=== PATIENT | male | born 1955 | race Caucasian/White ===

== ENCOUNTER 2017-06-06 19:12 | Emergency (ER) | payer OTHER ==
[~2017-06-06] VITALS: Ht 160 cm; Wt 149.7 kg
[~2017-06-06 19:12] MED LIST: BLOOD THINNER; CEPHALEXIN500 M1 PO; DARVOCET N 1001 TAB PO; KEFLEX500 MG PO; PRAVACHOL20 MG PO
[2017-06-06 19:18] VITALS: BP 152/67
[2017-06-06] MEDS ORDERED: NORCO 5-325 TA1 EACH PO (20:21)
== END 2017-06-06 20:31 | disposition home or self-care (01) ==
LOC: ED 19:12
DX: S93.401A Sprain of unspecified ligament of right ankle, initial encounter (principal); F17.200 Nicotine dependence, unspecified, uncomplicated; Z79.899 Other long term (current) drug therapy; W23.0XXA Caught, crushed, jammed, or pinched between moving objects, initial encounter; Y93.89 Activity, other specified; Y92.89 Other specified places as the place of occurrence of the external cause; Y99.0 Civilian activity done for income or pay

== ENCOUNTER 2018-03-11 10:14 | Inpatient (IN) | payer OTHER ==
[~2018-03-11] VITALS: Ht 167.6 cm; Wt 147.1 kg
--- NOTE | ~2018-03-11 | EKG ---
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
[~2018-03-11 10:14] MED LIST changes: +NORCO 5-325 TA1 EACH PO
[2018-03-11 10:15] VITALS: BP 134/47
[2018-03-11 10:41] LABS: BASO % 0.5 % (0.0-1.0); EOS % 0.4 % (1.0-4.0); LYMPH # 2.1 10*3/uL (1.3-4.4); LYMPH % 26.9 % (27.0-41.0); MEAN CELL VOLUME 89.6 fl (80.0-94.0); MEAN CORPUSCULAR HGB CONC 31.3 g/dl (33.0-37.0); MEAN PLATELET VOLUME 9.1 fl (9.6-12.3); MONO # 0.7 10*3/uL (0.1-1.0); MONO % 8.4 % (3.0-9.0); NEUT # 4.9 10*3/uL (2.3-7.9); NEUT % 63.3 % (47.0-73.0); NUCLEATED RED BLOOD CELL 0.1 10*3/uL (0.0-0.0); NUCLEATED RED BLOOD CELL 0.8 % (0.0-0.0); PLATELET COUNT AUTOMATED 189 10*3/uL (130-400); RED BLOOD COUNT 5.36 10*6/uL (4.50-5.90); RED CELL DISTRI WIDTH 15.5 % (0-14.5); WHITE BLOOD COUNT 7.8 10*3/uL (4.8-10.8)
[2018-03-11 10:52] LABS: ACT PARTIAL THROMBO TIME 23.9 SECONDS (20.8-31.5); INTERNATIONAL NORM RATIO 1.1 (2.0-3.5)
[2018-03-11 11:00] LABS: ALBUMIN 3.4 gm/dl (3.1-4.5); ALKALINE PHOSPHATASE 72 U/L (45-117); BUN 19 mg/dl (7-24); CHLORIDE 100 mmol/L (98-107); CREATININE 1.01 mg/dL (0.70-1.30); POTASSIUM 3.6 mmol/L (3.5-5.1); SGOT/AST 36 IU/L (3-35); SGPT/ALT 58 U/L (12-78); SODIUM 141 mmol/L (136-145)
[2018-03-11 11:02] LABS: TROPONIN I < 0.015 ng/ml (<0.045)
[2018-03-11 12:09] VITALS: BP 124/54
[2018-03-11] MEDS ORDERED: HYDROCHLOROTHIA50 M1 PO (12:12)
[2018-03-11] MEDS ORDERED: PRAVACHOL80 M1 PO (12:13)
[2018-03-11] MEDS ORDERED: CLOPIDOGREL75 MG PO (12:13)
[2018-03-11 12:15] VITALS: BP 113/77
[2018-03-11 13:55] LABS: BILIRUBIN NEGATIVE (NEGATIVE); BLOOD NEGATIVE (NEGATIVE); CLARITY CLEAR (CLEAR); COLOR YELLOW (YELLOW); GLUCOSE NEGATIVE (NEGATIVE); KETONE NEGATIVE (NEGATIVE); LEUKO ESTERASE NEGATIVE (NEGATIVE); NITRITE NEGATIVE (NEGATIVE); PH 6.5 (5.0-9.0); SPECIFIC GRAVITY <= 1.005 (1.005-1.030); UROBILINOGEN 0.2 E.U./dl (0.2-1.0)
[2018-03-11 14:01] LABS: BACTERIA TRACE; RBC 0-2 rbc/hpf (0-2); WBC 0-2 wbc/hpf (0-5)
[2018-03-11 16:00] VITALS: BP 152/84
[2018-03-11 20:00] VITALS: BP 113/52
[2018-03-12] VITALS: BP 112/64
[2018-03-12 06:27] LABS: BASO # 0.1 10*3/uL (0.0-0.1); BASO % 0.7 % (0.0-1.0); EOS # 0.1 10*3/uL (0.0-0.4); HEMATOCRIT 50.1 % (42.0-52.0); HEMOGLOBIN 15.6 g/dl (14.0-18.0); LYMPH # 2.1 10*3/uL (1.3-4.4); LYMPH % 23.6 % (27.0-41.0); MEAN CELL VOLUME 89.1 fl (80.0-94.0); MEAN CORPUSCULAR HGB 27.8 pg (27.0-31.0); MEAN CORPUSCULAR HGB CONC 31.1 g/dl (33.0-37.0); MEAN PLATELET VOLUME 9.3 fl (9.6-12.3); MONO # 0.8 10*3/uL (0.1-1.0); MONO % 9.1 % (3.0-9.0); NEUT # 5.9 10*3/uL (2.3-7.9); NUCLEATED RED BLOOD CELL 0.2 % (0.0-0.0); PLATELET COUNT AUTOMATED 207 10*3/uL (130-400); RED BLOOD COUNT 5.62 10*6/uL (4.50-5.90)
[2018-03-12 06:37] LABS: ALBUMIN 3.7 gm/dl (3.1-4.5); ALKALINE PHOSPHATASE 78 U/L (45-117); BUN 23 mg/dl (7-24); CHLORIDE 95 mmol/L (98-107); CHOLESTEROL 95 mg/dL (<200); CREATININE 1.13 mg/dL (0.70-1.30); FREE T4 1.31 ng/dl (0.76-1.46); HDL CHOLESTEROL 28 mg/dl (40-60); LDL CHOLESTEROL 46 mg/dL (9-159); PHOSPHOROUS 5.2 mg/dL (2.5-4.9); POTASSIUM 3.5 mmol/L (3.5-5.1); SGOT/AST 40 IU/L (3-35); SGPT/ALT 58 U/L (12-78); SODIUM 139 mmol/L (136-145); TOTAL PROTEIN 7.3 gm/dL (6.4-8.2); TRIGLYCERIDES 105 mg/dl (<150); VLDL CHOLESTEROL 21 mg/dL (6-40)
[2018-03-12 07:04] LABS: ACT PARTIAL THROMBO TIME 23.6 SECONDS (20.8-31.5); INTERNATIONAL NORM RATIO 1.1 (2.0-3.5)
[2018-03-12 08:00] VITALS: BP 136/61
[2018-03-12 12:00] VITALS: BP 130/50
[2018-03-12 16:00] VITALS: BP 121/55
[2018-03-12 20:00] VITALS: BP 121/56
[2018-03-13] VITALS: BP 105/65
[2018-03-13 06:29] LABS: BUN 25 mg/dl (7-24); CHLORIDE 89 mmol/L (98-107); CREATININE 1.03 mg/dL (0.70-1.30); SODIUM 136 mmol/L (136-145)
[2018-03-13 06:33] LABS: BASO # 0.1 10*3/uL (0.0-0.1); BASO % 0.7 % (0.0-1.0); EOS # 0.1 10*3/uL (0.0-0.4); HEMATOCRIT 52.8 % (42.0-52.0); LYMPH # 1.5 10*3/uL (1.3-4.4); LYMPH % 17.6 % (27.0-41.0); MEAN CELL VOLUME 90.6 fl (80.0-94.0); MEAN CORPUSCULAR HGB 27.4 pg (27.0-31.0); MEAN CORPUSCULAR HGB CONC 30.3 g/dl (33.0-37.0); MEAN PLATELET VOLUME 9.4 fl (9.6-12.3); MONO # 0.8 10*3/uL (0.1-1.0); MONO % 9.1 % (3.0-9.0); NEUT # 6.2 10*3/uL (2.3-7.9); PLATELET COUNT AUTOMATED 195 10*3/uL (130-400); RED BLOOD COUNT 5.83 10*6/uL (4.50-5.90); RED CELL DISTRI WIDTH 15.5 % (0-14.5); WHITE BLOOD COUNT 8.7 10*3/uL (4.8-10.8)
[2018-03-13 08:00] VITALS: BP 108/54
[2018-03-13 12:00] VITALS: BP 105/57
[2018-03-13 16:00] VITALS: BP 143/71
[2018-03-13 20:00] VITALS: BP 116/64
[2018-03-14] VITALS: BP 115/57
[2018-03-14 08:00] VITALS: BP 118/58
[2018-03-14 08:07] LABS: BASO % 0.5 % (0.0-1.0); EOS # 0.1 10*3/uL (0.0-0.4); HEMATOCRIT 48.9 % (42.0-52.0); HEMOGLOBIN 15.1 g/dl (14.0-18.0); LYMPH # 1.8 10*3/uL (1.3-4.4); LYMPH % 21.3 % (27.0-41.0); MEAN CELL VOLUME 89.1 fl (80.0-94.0); MEAN CORPUSCULAR HGB 27.5 pg (27.0-31.0); MEAN CORPUSCULAR HGB CONC 30.9 g/dl (33.0-37.0); MEAN PLATELET VOLUME 9.4 fl (9.6-12.3); MONO # 0.8 10*3/uL (0.1-1.0); MONO % 10.1 % (3.0-9.0); NEUT # 5.5 10*3/uL (2.3-7.9); NEUT % 66.6 % (47.0-73.0); PLATELET COUNT AUTOMATED 190 10*3/uL (130-400); RED BLOOD COUNT 5.49 10*6/uL (4.50-5.90); RED CELL DISTRI WIDTH 15.1 % (0-14.5); WHITE BLOOD COUNT 8.3 10*3/uL (4.8-10.8)
[2018-03-14 08:18] LABS: BUN 27 mg/dl (7-24); CHLORIDE 89 mmol/L (98-107); CREATININE 1.04 mg/dL (0.70-1.30); POTASSIUM 3.6 mmol/L (3.5-5.1); SODIUM 136 mmol/L (136-145)
[2018-03-14] MEDS ORDERED: SYMB80 INH (11:14)
[2018-03-14] MEDS ORDERED: PROAIR HFA8.5 GM INH (11:14)
[2018-03-14] MEDS ORDERED: LISINOPRIL5 MG PO (11:14)
[2018-03-14] MEDS ORDERED: ALDACTONE25 MG PO (11:14)
[2018-03-14] MEDS ORDERED: HYDR25T PO (11:14)
[2018-03-14] MEDS ORDERED: K-TAB10 MEQ PO (11:14)
[2018-03-14] MEDS ORDERED: LASIX40 MG PO (11:14)
== END 2018-03-14 12:55 | disposition home or self-care (01) | DRG 291 ==
LOC: ED 10:14 → EDHOLD 11:15 → 5E 11:15
PROVIDERS: Emergency Medicine; Internal Medicine; Student in an Organized Health Care Education/Training Program
DX: I11.0 Hypertensive heart disease with heart failure (principal); J96.00 Acute respiratory failure, unspecified whether with hypoxia or hypercapnia; E87.2 Acidosis; Z68.43 Body mass index [BMI] 50.0-59.9, adult; I69.351 Hemiplegia and hemiparesis following cerebral infarction affecting right dominant side; J44.9 Chronic obstructive pulmonary disease, unspecified; I50.33 Acute on chronic diastolic (congestive) heart failure; R79.89 Other specified abnormal findings of blood chemistry; R73.03 Prediabetes; I45.10 Unspecified right bundle-branch block; I73.9 Peripheral vascular disease, unspecified; I87.2 Venous insufficiency (chronic) (peripheral); E78.5 Hyperlipidemia, unspecified; F17.210 Nicotine dependence, cigarettes, uncomplicated; E66.01 Morbid (severe) obesity due to excess calories; Z79.82 Long term (current) use of aspirin; Z83.3 Family history of diabetes mellitus; Z82.49 Family history of ischemic heart disease and other diseases of the circulatory system; Z79.899 Other long term (current) drug therapy; Z71.6 Tobacco abuse counseling

== ENCOUNTER 2018-04-24 18:09 | Inpatient (IN) | payer OTHER ==
[~2018-04-24] VITALS: Ht 170.1 cm; Wt 146.1 kg
[2018-04-24] VITALS (11 sets, daily range): BP systolic 80–100; BP diastolic 37–54
--- NOTE | ~2018-04-24 | EKG ---
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
--- NOTE | ~2018-04-24 | PROC NOTE ---
[place], [place] PROCEDURE NOTE NAME: TAYLOR PALUMBO [facility] #: [id number] UNIT #: [id number] ROOM: [facility] DOCTOR: ESTIVEN BANG MD,WENDY BIRTHDATE: [birth year] DOS: 04/25/2018 PROCEDURE: Chest tube thoracostomy. PREOPERATIVE DIAGNOSES: Massive right pleural fluid with acute respiratory failure. POSTOPERATIVE DIAGNOSES: Successful insertion of the 20-Kinyarwanda chest tube in the right hemithorax without difficulty. PROCEDURE DESCRIPTION: Informed consent obtained from the patient. The ultrasound of the chest was already performed, the site of thoracentesis was marked. After that, the skin was cleaned with chlorhexidine solution. Local anesthetic administered into the skin in intercostal space. During administration of local anesthetic, the right pleural space was entered. Small amount of fluid was aspirated, which was removed from the right pleural space. After that, large bore needle was entered into the pleural space without any difficulty. After entering the right pleural space, the syringe was removed leaving the needle in place. Guidewire ____ in the right pleural cavity. The needle was removed leaving the guidewire in place. Incision given at the exit site in the chest. The tract was dilated with a plastic dilator up to 22-Kinyarwanda size. The chest tube inserted by Seldinger technique into the right pleural space without any difficulty. Initial drainage was done with 200 mL of pleural fluid removed in the containers. The chest tube was connected to the Pleur-evac ____ 1200 mL of pleural fluid removed. After that, the chest tube remained clamped about half an hour, moved to the gravity drainage for 2 hours and the suction will be started. The pleural fluid was sent for all the appropriate testing including the cytology and cultures. Procedure was well tolerated by the patient without difficulty. Chest x-ray will be reviewed up about 3-4 hours later to assess the reexpansion of the lung. Pain management will be ordered according to the need. WENDY JEAN-BAPTISTE MD CM:PROCNOTE:PROCEDURE NOTE [id number] WENDY BANG MD
--- NOTE | ~2018-04-24 | PR ---
[place], [place] PROGRESS NOTE NAME: TAYLOR PALUMBO [facility] #: [id number] UNIT #: [id number] ROOM: [facility] DOCTOR: ESTIVEN BANG MD,WENDY BIRTHDATE: [birth year] DOS: 04/27/2018 PULMONARY PROGRESS NOTE SUBJECTIVE: The patient was comfortably resting, sitting on the chair, has used the BiPAP few hours only in the morning. Does not wish to use at nighttime. He had been using oxygen supplement this morning. Partial reduction in respiratory symptoms noted with shortness of breath. Chest tube continues to remain in place in the right hemithorax with hemorrhagic pleural fluid drained. Cytology was completed this morning. The patient denies symptoms of fever or chills. Denies symptoms of nausea, vomiting, diarrhea, abdominal pain, hematemesis, or melena He does have mild cough with a small amount of sputum expectoration as well. The patient had a CT of the chest completed yesterday that did exclude the diagnosis of pulmonary embolism. The patient does have a right ventricular heart failure, which was noted as well. The edema of the extremities was noted to decrease. Denies symptoms of nausea, vomiting, diarrhea, diplopia, or headache. All review of systems was completed remains unchanged. Other past history as already dictated on the patient's last couple of days of admission was reviewed again and it remains unchanged. OBJECTIVE: VITAL SIGNS: For the patient which have been recorded showed temperature remains normal, respiratory rate 13-17, heart rate 75-73, blood pressure 116/93-90/50. Pulse oxygen saturation was noted as 8 liters nasal cannula 90-93% saturation. HEENT: Chronic obesity. Head was atraumatic. Eyes nonicterus. NECK: Supple and obese. CARDIOVASCULAR: S1, S2 is audible. LUNGS: The patient was noted with decreased breath sounds on the right chest. The left lung was noted. Moderate expiratory wheezing. There were no crackles. ABDOMEN: Soft and obese. EXTREMITIES: Noted chronic obesity, 2+ pitting edema noted with partial reduction in edema of the lower extremities. SKIN: Noted as dry. MUSCULOSKELETAL: Noted without any acute deformities. CENTRAL NERVOUS SYSTEM: Cranial nerves 2-12 intact. LABORATORY DATA: Sputum culture of yesterday, no bacterial growth. The Gram stain, few epithelial cells, moderate white blood cells, few gram-positive cocci in pairs. Chest x-ray done this morning shows persistent partial opacification of the lungs, mass lesion. Chest tube remains in place. CMP on 04/27/2018, BUN is 27, creatinine was normal. Glucose 167. CO2 was decreased to 42. Albumin of 2.7. CT of the chest does not show any evidence of pulmonary embolism. The patient was noted with multiple abnormal findings that includes the area of atelectasis, right upper lung with a very large mass lesion, complete occlusion of the right lung bronchus. Peripleural metastatic disease was also considered. Chest tube remains in place. A very large lymph node noted in suprahilar lymph node. Compromise of the right pulmonary artery noted by the suspicion malignant [place], [place] PROGRESS NOTE [facility]: [id number] UNIT #: [id number] ROOM: [facility] DOCTOR: ESTIVEN BAGN MD,[facility] BIRTHDATE: [birth year] process surrounding that with lymph node enlargement as well. Also, partial compromise of the superior vena cava was also noted. IMPRESSION: 1. 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 Current cytology was confirmed to be atypical, but the diagnosis of malignant process was not established by the pathologist. 2. The patient with ongoing acute severe hypercapnic hypoxic respiratory failure. 3. Acute exacerbation of chronic obstructive pulmonary disease. 4. Questionable pneumonia. 5. Acute right-sided heart failure as well. 6. The patient with chronic morbid obesity with suspicion of obstructive sleep apnea disorder. 7. Metabolic alkalosis secondary to chronic hypercarbia. 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 The patient will be at risk of developing acute respiratory failure with deep sedation and general anesthesia, at the present time. For further assessment and management of current malignant process, the patient was advised to be transferred to another facility either [facility] or any [facility] in [place] of that caliber or to [facility] [place] [facility]. The patient have chosen after discussion with the family members about transfer to [facility]. I did speak with the patient's thoracic surgeon, ____. The preference for assessment would be a CT-guided needle aspirate biopsy with gentle sedation to accomplish the diagnosis of malignancy and then treatment to be started accordingly. If necessary at some point of time, stent for the patient could also be placed in the superior vena cava if necessary. Continue in the meantime, oxygen supplementation, BiPAP as tolerated. Continue steroids. The patient's antibiotic may need to be discontinued. There was no clinical suspicion of pneumonia. Monitor metabolic alkalosis. The patient with the changes in medical management to be ordered accordingly. Usual care. Supportive therapy, plan of management. Overall prognosis of the patient would be considered guarded at the present time. [place], [place] PROGRESS NOTE NAME: TAYLOR PALUMBO UNIT #: [id number] ROOM: [facility] DOCTOR: WENDY LINN MD BIRTHDATE: [birth year] WENDY JEAN-BAPTISTE MD CM:PNTRANS [id number] WENDY BANG MD 04/28/18 0137 interface
--- NOTE | ~2018-04-24 | PR ---
[place], [place] PROGRESS NOTE NAME: TAYLOR PALUMBO [facility] #: [id number] UNIT #: [id number] ROOM: [facility] DOCTOR: ESTIVEN BANG MD,WENDY BIRTHDATE: [birth year] DOS: 04/26/2018 PULMONARY PROGRESS NOTE SUBJECTIVE: The patient was noted quite comfortable this morning with reduction in symptoms of shortness of breath. He refused to use the BiPAP at nighttime, stated he could not tolerate the pressure. He denies symptoms of fever or chills. Denies symptoms of hemoptysis. The patient does have reduction in shortness of breath. Edema of the lower extremity is noted partially decreased. Chest tube remains in place in the right hemithorax with large volume of pleural fluid drainage was noted. He denies symptoms of fever or chills. Denies any acute chest pain. There was no sputum expectoration. He has been assessed yesterday by Cardiology Service and was suggested use of therapeutic anticoagulation because of the right ventricle dysfunction noted on echocardiogram as part of the assessment for possibility of pulmonary embolism. The patient has been sitting this morning on the chair. Denies symptoms of headache or diplopia. Remaining systems were reviewed and they were noted all negative. Past medical, family and social history all reviewed and remain unchanged from yesterday's examination. OBJECTIVE: VITAL SIGNS: Which have been recorded showed temperature noted as normal, respiratory rate of 19-18, heart rate 80, blood pressure 100/50 to 92/50. Pulse oxygen saturation recorded on 6 liters nasal cannula was 91-93% saturation; with BiPAP 50% oxygen, 90-93% saturation of oxygen recorded. HEENT: Shows severe morbid obesity. NECK: Supple. It was short and obese. CARDIOVASCULAR: S1 and S2 audible. LUNGS: Still noted decreased breath sounds in the right lower chest, but improvement in air entry noted in the remaining parts of the lung. The left lung appears clear. There was no wheezing. ABDOMEN: Soft, obese, nontender. EXTREMITIES: The patient noted with 2-3+ pitting edema at the present time. VISIBLE SKIN: No lesions or rashes. Venous stasis pigmentation changes. There were no abnormal open areas. MUSCULOSKELETAL: Without any acute deformities. CENTRAL NERVOUS SYSTEM: Cranial nerves 2-12 intact. LABORATORY AND DIAGNOSTIC DATA: Severe dilatation of the right ventricle was also noted consistent with normal ventricular functions. Moderate elevation of pulmonary artery pressures were also noted. Left ventricle was noted with mild LVH without any wall motion abnormalities. Ultrasound of bilateral lower extremity was noted without any edema or thrombosis. CBC for the patient that was done this morning, WBC count normal, hemoglobin essentially was normal, platelet count was normal. BMP this morning, BUN 34, creatinine was normal. Carbon dioxide 48. Chloride was 92. Blood culture this month showed no bacterial growth, final culture results are pending. Review of pleural fluid data for this patient, RBCs were 39,000, WBC 461 with 38% macrophages, 2% [place], [place] PROGRESS NOTE NAME: TAYLOR PALUMBO UNIT #: [id number] ROOM: [facility] DOCTOR: ESTIVEN BANG MD,[facility] BIRTHDATE: [birth year] basophils, and predominance of lymphocytes of 60%. Glucose 130, total protein of 3.4, LDH of 140, pH of 7.32, cholesterol less than 50, albumin 2.0 with couple of criteria in the current fluid to be characterized as an exudative effusion. Cytology of the pleural fluid remains pending. Chest x-ray that was done this morning was reviewed, shows improvement in aeration of the lungs with significant improvement in aeration noted in the right upper lung with still area of opacity noted in the right lower lobe, most likely combination from pleural fluid/pleural thickening and/or atelectasis combination or all of the bowel or other reasons. IMPRESSION: 1. The patient has been currently noted with acute on chronic severe hypercapnic hypoxic respiratory failure. 2. Severe metabolic alkalosis, partially improved. 3. Ventricular dysfunction with acute cor pulmonale as well, rule out pulmonary embolism. 4. Severe morbid obesity with obstructive sleep apnea disorder very likely as well. 5. History of nicotine abuse. 6. Mild edema secondary to diuretic therapy. 7. Questionable pneumonia as well. PLAN OF MANAGEMENT: Case was discussed with Dr. Waterman. The patient has been getting therapeutic Lovenox 1 mg/kg body weight 150 mg subcutaneous b.i.d. started yesterday. CTA of the chest was ordered. The patient was refusing to get the CTA of the chest done and agreed later on to get the testing performed today. He was still refusing to use the BiPAP at nighttime, stated that he would not use that. In the meantime, continue other therapy, plan of management, usual care, other supportive plan of management and care plan. About 4000 mL or more pleural fluid was drained from the chest tube. The etiology of the patient at this time remains unclear, rule out malignancy and other abnormal processes resulting in massive right pleural effusion. Supportive plan of management, other care, and plan of treatment. Other additional treatment changes will be made based on progression of the illness. All other therapy, plan of management, and care plan. Supportive care. [place], [place] PROGRESS NOTE NAME: TAYLOR PALUMBO UNIT #: [id number] ROOM: [facility] DOCTOR: WENDY LINN MD BIRTHDATE: [birth year] WENDY JEAN-BAPTISTE MD CM:SHAKIR [id number] WENDY BANG MD 05/07/18 0948 interface
--- NOTE | ~2018-04-24 | PR ---
[place], [place] PROGRESS NOTE NAME: TAYLOR PALUMBO [facility] #: [id number] UNIT #: [id number] [facility]OM: [facility] DOCTOR: NEERAJ CAMPBELL BIRTHDATE: [birth year] DOS: 04/26/2018 PULMONARY PROGRESS NOTE SUBJECTIVE: The patient was noted sitting at his bed at this time without any signs of acute distress. The patient states he is breathing a lot better today after chest tube placed yesterday. The patient is still refusing to wear BiPAP at night because it makes it hard for him to sleep. OBJECTIVE: VITAL SIGNS: Normal temperature, respiratory rate 19, heart rate 80, blood pressure 100/50, pulse oxygen saturation on 6 L nasal cannula 85% at times, primarily however in the 91-93% range. HEENT: Head was atraumatic. Eyes nonicteric. NECK: Supple. CARDIOVASCULAR: S1, S2 audible. LUNGS: Crackles bilaterally, decreased respiratory sounds bilaterally. EXTREMITIES: Slight edema. CARDIOVASCULAR SYSTEM: Grossly intact. ABDOMEN: Soft, nontender. LABORATORY DATA: Pleural fluid total protein 3.4, serum total protein 6.9. Pleural fluid LDH 140, serum LDH 184. Serum albumin 3.2, pleural fluid albumin 2. CBC on 04/26/2018, white blood cell count 8.2, hemoglobin 12.5, platelet count 142. CMP on 04/26/2018, BUN 34, creatinine 0.87, carbon dioxide increased from 42 to 48, glucose 111. ASSESSMENT: 1. Congestive heart failure, biventricular failure with massive right pleural fluid. 2. Morbid obesity, strong suspicion of obstructive sleep apnea disorder. 3. Mild hypotension, resolving. 4. Chronic O2 dependence. 5. Acute exacerbation of chronic obstructive pulmonary disease, superimposed. 6. Severe metabolic alkalosis. PLAN OF MANAGEMENT: Chest AP one view ordered for 04/27/2018 and 04/28/2018, continue current patient treatment with bronchodilators, antibiotics and BiPAP to be used at night time. Further changes in the management will be made based upon changes in the patient's clinical status. Pleural fluid and culture pending. Bronchoscopy and sputum cultures pending. The patient is unable to lie flat at this time to receive a CTA, but this will be attempted in the future. Continue other current care and supportive management. NEERAJ CAPMBELL DO [place], [place] PROGRESS NOTE NAME: TAYLOR PALUMBO [place] UNIT #: [id number] [facility]: [facility] DOCTOR: NEERAJ CAMPBELL BIRTHDATE: [birth year] WENDY JEAN-BAPTISTE MD CM:PNTRANS [id number] NEERAJ CAMPBELL 04/27/18 0808 interface
--- NOTE | ~2018-04-24 | CON ---
[place], [place] REPORT OF CONSULTATION NAME[id number] UNIT #: [id number] ROOM: [facility] DOCTOR: WENDY LINN MD BIRTHDATE: [birth year] DOS: 04/25/2018 PULMONARY CONSULTATION, EVALUATION AND MANAGEMENT REASON FOR CONSULTATION: Assess the patient with current acute respiratory failure with a large right-sided pleural fluid and increase of the respiratory symptoms. HISTORY OF PRESENT ILLNESS: This is a 62-year-old white male who has been noted with morbid obesity, presented to the hospital, admitted under the hospitalist service on the date of 04/24/2018. The patient has been reported getting acute respiratory symptoms for the past couple of weeks of progressive worsening. He has been reporting symptoms of orthopnea with progressive cough, chest congestion with minimal sputum expectoration. Shortness of breath was noted significantly worse in the past 3-4 days. Shortness breath was noted severe according to the patient at rest. He does have some symptoms of wheezing as well. Denies symptoms of chest pain or hemoptysis. The patient has been assessed in the hospital. The patient admitted to the hospital for further medical management for the respiratory failure in the Intensive Care Unit. He has been using the BiPAP at this time that has been continued until this morning as I assessed the patient. REVIEW OF SYSTEMS: CONSTITUTIONAL SYMPTOMS: Fatigue and tiredness reported. Denies symptoms of fever or chills. EYES: Denies any burning, redness, or tenderness. EARS, NOSE, THROAT SYMPTOMS: Denies sore throat, hoarseness, otalgia, postnasal drainage, or epistaxis. CARDIOVASCULAR SYSTEM: Denies angina pain, palpitation, noted progressive edema of the lower extremities. GASTROINTESTINAL SYMPTOMS: Denies dysphagia, nausea, vomiting, diarrhea, abdominal pain, hematemesis, or melena. History of morbid obesity. There was no abnormal weight loss history. GENITOURINARY SYMPTOMS: Denies dysuria, suprapubic pain, or hematuria. MUSCULOSKELETAL SYMPTOMS: Denies acute joint pain, redness, or tenderness. CENTRAL NERVOUS SYSTEM: Denies dizziness, diplopia, or syncopal episodes. Remaining systems were reviewed. They were noted all negative. PAST MEDICAL HISTORY: 1. Congestive heart failure, diastolic dysfunction. 2. Chronic hypoxic respiratory failure, hypercapnia, use of oxygen supplementation 4 liters nasal cannula. 3. History of possible cor pulmonale as well. 4. Severe morbid obesity. 5. Advanced chronic obstructive pulmonary disease. 6. Essential hypertension. 7. Hyperlipidemia. 8. Past history of cerebrovascular accident. There were no neurologic residual deficit. [place], [place] REPORT OF CONSULTATION NAME: TAYLOR PALUMBO UNIT #: [id number] ROOM: [facility] DOCTOR: WENDY LINN MD BIRTHDATE: [birth year] 9. Peripheral arterial disease. PAST SURGICAL HISTORY: Reported as hernia repair. SOCIAL HISTORY: The patient states , lives at home, has 2 children. Smoking was noted one and half pack of cigarettes a day from the age of 89 years old with active tobacco use. The patient does have a history of alcohol dependence. There is no history of illicit drugs. FAMILY HISTORY: The patient's father at younger age of myocardial infarction. Mother at younger age complication related to diabetes mellitus and CVA. MEDICATIONS: Medications from home listed as use of Plavix, Lasix, hydrochlorothiazide, lisinopril, potassium chloride, pravastatin and Aldactone. DRUG ALLERGIES: Noted with no known drug allergies. PHYSICAL EXAMINATION: GENERAL: A 62-year-old white, morbid male, currently noted on the BiPAP at this time with 50% oxygen supplementation. He has been noted with resting tachypnea. VITAL SIGNS: The patient's height was recorded by the nursing staff on admission with height of 5 feet 6 inches, weight of 322, BMI 50.4. Vital signs has a normal temperature, respiratory rate ranged between 28-24, heart rate ranged between 93-94, blood pressure of 80/37-98/50. Intake since admission as intake 630 mL, output 1050 mL. Pulse oxygen saturation on 50% oxygen with the BiPAP setting of 18/10 as 90%-94% saturation. HEENT: Severe morbid obesity. Head was atraumatic. Decreased posterior pharyngeal space, dryness of the oral mucosa. NECK: Supple, short and obese. CARDIOVASCULAR SYSTEM: S1, S2 audible. LUNGS: Absent breath sounds on right chest auscultation. Left chest auscultation noted with scattered wheezing, but there were no crackles heard. ABDOMEN: Severe morbid obesity. Bowel sounds present. EXTREMITIES: The patient noted with a 2-3+ pitting edema and chronic venous stasis pigmentation changes. SKIN: Noted dry. There were no abnormal lesions. MUSCULOSKELETAL: Without any acute deformities. CENTRAL NERVOUS SYSTEM: Cranial nerves 2-12 intact. LABORATORY DATA: Lactic acid was noted normal at 0.9 yesterday. CBC were normal yesterday as well with normal hemoglobin, hematocrit, and platelet. PT/INR was noted normal. CMP yesterday on admission, BUN 27, creatinine normal, glucose 188, carbon dioxide 51, chloride of 94. The CMP that was repeated this morning, BUN of 29, creatinine normal, glucose 131, CO2 42, chloride of 93. CBC of the patient this morning, WBC count 9.4, hemoglobin 12.7, hematocrit 44.8, platelet count 173,000. Arterial blood gas first was done in the Emergency Room; pH of 7.31, pCO2 88, pO2 71 with 50% oxygen. The arterial blood gas that was done this morning 50% oxygen, pH of 7.31, pCO2 of 89, pO2 of 54 with 50% oxygen setting of 18/10. Chest x-ray shows massive right pleural fluid was [place], [place] REPORT OF CONSULTATION NAME: TAYLOR PALUMBO UNIT #: [id number] ROOM: [facility] DOCTOR: ANGELA LINN MDM BIRTHDATE: [birth year] noted with a possibility compression atelectasis right lung. The left lung appeared to be clear of any acute infiltration; however, severe morbid obesity does limit the exact accurate assessment. IMPRESSION: The patient currently admitted to the hospital with finding appeared to be" 1. Congestive heart failure, biventricular failure with massive right pleural fluid, rule out any acute pneumonia with parapneumonic pleural fluid as well as the other etiology of the right pleural fluid. 2. Morbid obesity, strong suspicion of obstructive sleep apnea disorder. 3. Mild hypotension related to current acute congestive heart failure. 4. The patient with chronic O2 dependence. 5. Acute exacerbation of chronic obstructive pulmonary disease superimposed would be considered as well. 6. The patient with suspected obstructive sleep apnea disorder. 7. Severe metabolic alkalosis secondary to the chronic hypercarbia as well. PLAN OF MANAGEMENT: Continue current antibiotic for community-acquired pneumonia. The patient has been assessed with the ultrasound at the bedside with very large right pleural fluid. The chest tube will be inserted at the bedside today. The oxygen supplementation with the BiPAP use intermittently to be done after removal of the pleural fluid would be helpful. Continue bronchodilator treatment and other therapy, plan of management and care plan. Usual treatment. Nicotine replacement patches ordered to overcome the nicotine withdrawal. Continue DVT prophylaxis, diuretic therapy, monitor BUN, creatinine and electrolytes as well. Supportive therapy, plan of management corticosteroids will be added to the treatment if the patient becomes worse. The patient has been given 1 dose of Solu-Medrol 125 mg in the Emergency Room yesterday. Supportive plan of therapy and care plan and other treatment. Fluid will be analyzed and based on that, additional change in recommendation and treatment will be done. At some point of time, CT scan chest will be assessed after drainage of pleural fluid to assess the thorax, rule out any malignant process. Total time spent in pulmonary critical care evaluation and management for today's consultation was 45 minutes. WENDY JEAN-BAPTISTE MD CM:CONSTR:REPORT OF CONSULTATION [id number] 04/26/18 0159 interface
--- NOTE | ~2018-04-24 | PR ---
[place], [place] PROGRESS NOTE [id number] UNIT #: [id number] ROOM: [facility] DOCTOR: MIN JONES MD BIRTHDATE: [birth year] DOS: 04/26/2018 CARDIOLOGY PROGRESS NOTE SUBJECTIVE: The patient was seen at his bedside in the intensive care unit today, 04/26/2018, for followup of dyspnea and a large right pleural effusion. Dr. Alfred, his aircraft inspection record clerk, inserted a chest tube yesterday and it continues to drain bloody fluid. He has had over 4 liters out thus far. He does feel better and states that he can now lay flat. An echocardiogram done on 04/25/2018 showed normal left ventricular size with mild concentric left ventricular hypertrophy. The septum had abnormal motion consistent with right ventricular overload. Left ventricular systolic and diastolic functions were normal. The right ventricle was moderately to severely dilated with mild tricuspid insufficiency and moderate pulmonary hypertension. The IVC was also dilated consistent with elevated central venous pressures. PHYSICAL EXAMINATION: VITAL SIGNS: Today, his pulse is 80 and regular, blood pressure is 100/50. He is afebrile. NECK: Supple. He has no jugular distention. Carotids are full. LUNGS: Respirations are unlabored at rest. He does have decreased breath sounds and dullness at the right base. The left lung is clear. HEART: Has a regular rhythm with an S4 gallop. ABDOMEN: Obese, but otherwise benign. EXTREMITIES: Showed no edema. IMPRESSION: 1. Respiratory failure with large right pleural effusion. 2. Abnormal echocardiogram demonstrating evidence for right ventricular overload. This appears to be a chronic process with some degree of right ventricular compensation and moderate pulmonary hypertension. 3. Mixed acid base disorder with respiratory acidosis and metabolic alkalosis. 4. History of heart failure with preserved ejection fraction, morbid obesity and remote stroke. 5. History of hypertension and hyperlipidemia. PLAN: I have discussed his care with house staff as well as with Dr. Alfred. The patient is much more stable today and we will proceed with a CT angiogram of the chest to help further determine the cause of his deterioration and to help plan further therapy. We thank the hospitalist physicians for asking our advice regarding his care. [place], [place] PROGRESS NOTE NAME: TAYLOR PALUMBO UNIT #: [id number] ROOM: [facility] DOCTOR: MIN JONES MD BIRTHDATE: [birth year] MIN JONES MD CM:PNTRANS 7 [id number] MIN JONES MD 04/26/18 1508 interface
[~2018-04-24 18:09] MED LIST changes: +ALDACTONE25 MG PO; +CLOPIDOGREL75 MG PO; +HYDR25T PO; +HYDROCHLOROTHIA50 M1 PO; +K-TAB10 MEQ PO; +LASIX40 MG PO; +LISINOPRIL5 MG PO; +PRAVACHOL80 M1 PO; +PROAIR HFA8.5 GM INH; +SYMB80 INH
[2018-04-24 19:01] LABS: BASO % 0.5 % (0.0-1.0); EOS # 0.1 10*3/uL (0.0-0.4); EOS % 1.6 % (1.0-4.0); HEMATOCRIT 42.6 % (42.0-52.0); HEMOGLOBIN 12.7 g/dl (14.0-18.0); LYMPH # 1.6 10*3/uL (1.3-4.4); MEAN CELL VOLUME 91.6 fl (80.0-94.0); MEAN CORPUSCULAR HGB 27.3 pg (27.0-31.0); MEAN CORPUSCULAR HGB CONC 29.8 g/dl (33.0-37.0); MEAN PLATELET VOLUME 9.3 fl (9.6-12.3); MONO # 0.7 10*3/uL (0.1-1.0); MONO % 8.7 % (3.0-9.0); NEUT # 5.7 10*3/uL (2.3-7.9); NEUT % 69.7 % (47.0-73.0); PLATELET COUNT AUTOMATED 183 10*3/uL (130-400); RED BLOOD COUNT 4.65 10*6/uL (4.50-5.90); RED CELL DISTRI WIDTH 15.8 % (0-14.5); WHITE BLOOD COUNT 8.2 10*3/uL (4.8-10.8)
[2018-04-24 19:16] LABS: BILIRUBIN NEGATIVE (NEGATIVE); BLOOD NEGATIVE (NEGATIVE); CLARITY CLEAR (CLEAR); COLOR YELLOW (YELLOW); GLUCOSE NEGATIVE (NEGATIVE); KETONE NEGATIVE (NEGATIVE); LEUKO ESTERASE NEGATIVE (NEGATIVE); NITRITE NEGATIVE (NEGATIVE); UROBILINOGEN 0.2 E.U./dl (0.2-1.0)
[2018-04-24 19:18] LABS: ALKALINE PHOSPHATASE 70 U/L (45-117); BUN 27 mg/dl (7-24); CHLORIDE 94 mmol/L (98-107); CREATININE 0.95 mg/dL (0.70-1.30); POTASSIUM 3.8 mmol/L (3.5-5.1); SGOT/AST 28 IU/L (3-35); SGPT/ALT 31 U/L (12-78); SODIUM 145 mmol/L (136-145); TOTAL PROTEIN 6.8 gm/dL (6.4-8.2)
[2018-04-24 19:20] LABS: TROPONIN I < 0.015 ng/ml (<0.045)
[2018-04-24 19:43] LABS: HYALINE CAST TNTC; RBC 0-2 rbc/hpf (0-2)
[2018-04-24 19:44] LABS: BACTERIA 1+
[2018-04-24 20:09] LABS: ABG BASE EXCESS 13.9 mmol/L (-2.0-2.0); ABG HCO3 43.6 mmol/l (22-26); ABG O2 SATURATION 92.8 % (95-97); ARTERIAL BLOOD GAS PH 7.314 (7.35-7.45)
[2018-04-24 20:12] LABS: ARTERIAL BLOOD GAS PCO2 88.2 mmHg (35-45)
[2018-04-25] VITALS (7 sets, daily range): BP systolic 83–98; BP diastolic 36–54
[2018-04-25 05:10] LABS: ALBUMIN 3.2 gm/dl (3.1-4.5); ALKALINE PHOSPHATASE 73 U/L (45-117); BUN 29 mg/dl (7-24); CHLORIDE 93 mmol/L (98-107); CREATININE 1.02 mg/dL (0.70-1.30); PHOSPHOROUS 4.9 mg/dL (2.5-4.9); POTASSIUM 4.3 mmol/L (3.5-5.1); SGOT/AST 29 IU/L (3-35); SGPT/ALT 32 U/L (12-78); SODIUM 144 mmol/L (136-145); TOTAL PROTEIN 6.9 gm/dL (6.4-8.2)
[2018-04-25 05:17] LABS: THYROID STIM HORMONE (HS) 0.995 uIU/ml (0.358-4.75)
[2018-04-25 06:12] LABS: HEMATOCRIT 44.8 % (42.0-52.0); HEMOGLOBIN 12.7 g/dl (14.0-18.0); MEAN CORPUSCULAR HGB CONC 28.3 g/dl (33.0-37.0); MEAN PLATELET VOLUME 9.8 fl (9.6-12.3); PLATELET COUNT AUTOMATED 173 10*3/uL (130-400); RED BLOOD COUNT 4.71 10*6/uL (4.50-5.90); RED CELL DISTRI WIDTH 15.9 % (0-14.5); WHITE BLOOD COUNT 9.4 10*3/uL (4.8-10.8)
[2018-04-25 06:30] LABS: MEAN CELL VOLUME 95.1 fl (80.0-94.0)
[2018-04-25 06:59] LABS: TOTAL CELLS COUNTED 100 #CELLS
[2018-04-25 07:02] LABS: PLATELET SUFFICIENCY NORMAL (NORMAL)
[2018-04-25 07:55] LABS: ABG HCO3 44.4 mmol/l (22-26); ABG O2 SATURATION 86.8 % (95-97); ARTERIAL BLOOD GAS PH 7.31 (7.35-7.45); ARTERIAL BLOOD GAS PO2 54.4 mmHg (80-90)
[2018-04-25 07:58] LABS: ARTERIAL BLOOD GAS PCO2 89.9 mmHg (35-45)
[2018-04-25 10:51] LABS: BODY FLUID WBC 461 /uL
[2018-04-25 11:33] LABS: BF LYMPHOCYTES 60 %; BF MACROPHAGES 38 %
[2018-04-26] VITALS: BP 95/51
[2018-04-26 04:00] VITALS: BP 92/50
[2018-04-26 04:39] LABS: BASO % 0.2 % (0.0-1.0); EOS % 0.4 % (1.0-4.0); HEMATOCRIT 42.3 % (42.0-52.0); HEMOGLOBIN 12.8 g/dl (14.0-18.0); LYMPH # 1.8 10*3/uL (1.3-4.4); LYMPH % 21.9 % (27.0-41.0); MEAN CORPUSCULAR HGB 27.6 pg (27.0-31.0); MEAN CORPUSCULAR HGB CONC 30.3 g/dl (33.0-37.0); MEAN PLATELET VOLUME 8.6 fl (9.6-12.3); MONO # 0.6 10*3/uL (0.1-1.0); MONO % 7.7 % (3.0-9.0); NEUT # 5.7 10*3/uL (2.3-7.9); NEUT % 69.3 % (47.0-73.0); PLATELET COUNT AUTOMATED 142 10*3/uL (130-400); RED BLOOD COUNT 4.63 10*6/uL (4.50-5.90); RED CELL DISTRI WIDTH 15.9 % (0-14.5); WHITE BLOOD COUNT 8.2 10*3/uL (4.8-10.8)
[2018-04-26 04:51] LABS: BUN 34 mg/dl (7-24); CHLORIDE 92 mmol/L (98-107); CREATININE 0.87 mg/dL (0.70-1.30); POTASSIUM 4.2 mmol/L (3.5-5.1); SODIUM 141 mmol/L (136-145)
[2018-04-26 04:55] LABS: MEAN CELL VOLUME 91.4 fl (80.0-94.0)
[2018-04-26 08:00] VITALS: BP 100/50
[2018-04-26 12:00] VITALS: BP 95/50
[2018-04-26 16:00] VITALS: BP 110/61
[2018-04-26 20:00] VITALS: BP 141/70
[2018-04-27] VITALS: BP 100/50
[2018-04-27 04:00] VITALS: BP 102/60
[2018-04-27 05:31] LABS: ALBUMIN 2.7 gm/dl (3.1-4.5); ALKALINE PHOSPHATASE 60 U/L (45-117); BUN 27 mg/dl (7-24); CHLORIDE 95 mmol/L (98-107); CREATININE 0.86 mg/dL (0.70-1.30); POTASSIUM 4.5 mmol/L (3.5-5.1); SGOT/AST 22 IU/L (3-35); SGPT/ALT 25 U/L (12-78); SODIUM 142 mmol/L (136-145); TOTAL PROTEIN 6.3 gm/dL (6.4-8.2)
[2018-04-27 08:00] VITALS: BP 90/50
[2018-04-27 12:00] VITALS: BP 116/63
[2018-04-27 14:04] LABS: ANTICARDIOLIPIN AB, IGG, QN 17 GPL U/mL (0-14); ANTICARDIOLIPIN AB, IGM, QN <9 MPL U/mL (0-12); CARDIOLIPIN AB IGA 161836 <9 APL U/mL (0-11)
[2018-04-28 02:05] LABS: ANTI-THROMBIN III ACTIVITY 107 % (75-135); PROTEIN S, FREE 121 % (57-157); PROTEIN S, TOTAL 100 % (60-150)
[2018-04-28 03:09] LABS: LUPUS DRVVT 46.5 sec (0.0-47.0); PTT-LA 47.3 sec (0.0-51.9)
[2018-04-28 11:04] LABS: LUPUS REFLEX INTERPRETATION Comment: (.)
== END 2018-04-27 13:15 | disposition short-term general hospital (02) | DRG 871 ==
LOC: ED 18:09 → ICCU 20:23 → EDHOLD 20:23 → ICCU 20:46
PROVIDERS: Family Medicine; Internal Medicine; Internal Medicine Critical Care Medicine; Nurse Practitioner Family; Student in an Organized Health Care Education/Training Program
PROC: 5A09357 Assistance with Respiratory Ventilation, Less than 24 Consecutive Hours, Continuous Positive Airway Pressure (ICD-10-PCS; principal; 2018-04-24)
PROC: 0W9900Z Drainage of Right Pleural Cavity with Drainage Device, Open Approach (ICD-10-PCS; 2018-04-25)
PROC: 5A09357 Assistance with Respiratory Ventilation, Less than 24 Consecutive Hours, Continuous Positive Airway Pressure (ICD-10-PCS; 2018-04-25)
DX: A41.9 Sepsis, unspecified organism (principal); J18.9 Pneumonia, unspecified organism; I50.33 Acute on chronic diastolic (congestive) heart failure; J96.21 Acute and chronic respiratory failure with hypoxia; J96.22 Acute and chronic respiratory failure with hypercapnia; J98.59 Other diseases of mediastinum, not elsewhere classified; E44.0 Moderate protein-calorie malnutrition; J90 Pleural effusion, not elsewhere classified; J94.8 Other specified pleural conditions; C79.51 Secondary malignant neoplasm of bone; Z68.43 Body mass index [BMI] 50.0-59.9, adult; J44.0 Chronic obstructive pulmonary disease with (acute) lower respiratory infection; J44.1 Chronic obstructive pulmonary disease with (acute) exacerbation; E87.4 Mixed disorder of acid-base balance; E78.5 Hyperlipidemia, unspecified; R73.03 Prediabetes; D64.9 Anemia, unspecified; C80.1 Malignant (primary) neoplasm, unspecified; R59.0 Localized enlarged lymph nodes; Z53.29 Procedure and treatment not carried out because of patient's decision for other reasons; I50.82 Biventricular heart failure; I27.20 Pulmonary hypertension, unspecified; I11.0 Hypertensive heart disease with heart failure; F17.210 Nicotine dependence, cigarettes, uncomplicated; E66.01 Morbid (severe) obesity due to excess calories; R91.8 Other nonspecific abnormal finding of lung field; I73.9 Peripheral vascular disease, unspecified; R65.20 Severe sepsis without septic shock; R73.9 Hyperglycemia, unspecified; E87.8 Other disorders of electrolyte and fluid balance, not elsewhere classified; Z71.6 Tobacco abuse counseling; Z99.81 Dependence on supplemental oxygen; Z86.73 Personal history of transient ischemic attack (TIA), and cerebral infarction without residual deficits; Z82.49 Family history of ischemic heart disease and other diseases of the circulatory system; Z83.3 Family history of diabetes mellitus; Z82.3 Family history of stroke; Z79.899 Other long term (current) drug therapy; Z79.02 Long term (current) use of antithrombotics/antiplatelets